=== PATIENT | female | born 1965 | race Caucasian/White ===

== ENCOUNTER 2018-05-12 17:56 | Emergency (ER) | payer MEDICARE, OTHER ==
[~2018-05-12] VITALS: Ht 160 cm; Wt 86.2 kg
== END 2018-05-12 19:41 | disposition home or self-care (01) ==
LOC: ED 17:56
PROC: 2W3CX1Z Immobilization of Right Lower Arm using Splint (ICD-10-PCS; principal; 2018-05-12)
DX: S63.501A Unspecified sprain of right wrist, initial encounter (principal); W10.9XXA Fall (on) (from) unspecified stairs and steps, initial encounter; X50.9XXA Other and unspecified overexertion or strenuous movements or postures, initial encounter
CPT/HCPCS: 29125; 73110; 99283

== ENCOUNTER 2018-11-29 12:23 | Inpatient (IN) | payer MEDICARE, OTHER ==
[~2018-11-29] VITALS: Ht 160 cm; Wt 82.2 kg
--- NOTE | 2018-11-29 14:08 | NUR ---
PT ARRIVED TO FLOOR VIA STRETCHER, FROM [facility] WITH 2L MASK IN PLACE, NG TUBE CLAMPED. PT WITH 7/10 ABDOMINAL PAIN. 0.5 MG DILAUDID ADMINISTERED. NG TUBE CONNECTED TO LIWS. PT IS AAO X3. ORIENTED TO ROOM, D5LR AT 125 STARTED. CALL LIGHT IN REACH. ICE SHIPS PROVIDED PER ORDER. DENIES FURTHER NEEDS.
--- NOTE | 2018-11-29 14:23 | NUR ---
PORT AVAILIBLE NOT, ACCESSED AT THIS TIME.
--- NOTE | 2018-11-29 15:55 | NUR ---
PT WITH 5/10 ABDOMINAL PAIN. REFUSED MEDICAITON. HEAT PACK APPLIED TO ABDOPMEN, ICE PACK TO NECK FOR HEADACHE. DENIES FURTHER NEEDS.
[2018-11-29] MEDS ORDERED: TERBINAFINE HC250 MG PO (15:56)
[2018-11-29] MEDS ORDERED: LISINOPRIL10 MG PO (15:56)
[2018-11-29] MEDS ORDERED: GABAPENTIN300 MG PO (15:56)
[2018-11-29] MEDS ORDERED: MAGIC MOUTHWASH PO (16:00)
[2018-11-29] MEDS ORDERED: LEVOTHYROXINE50 MCG PO (16:01)
[2018-11-29] MEDS ORDERED: OMEPRAZOLE20 MG PO (16:03)
[2018-11-29] MEDS ORDERED: ESCITALOPRAM OX10 MG PO (16:03)
[2018-11-29] MEDS ORDERED: NORCO 5-325 TA1 EACH PO (16:04)
[2018-11-29] MEDS ORDERED: AMITRIPTYLINE H25 MG PO (16:04)
[2018-11-29] MEDS ORDERED: BENADRYL25 MG PO (17:17)
[2018-11-29] MEDS ORDERED: EXCEDRIN MIGRA1 EAC2 PO (17:17)
[2018-11-29] MEDS ORDERED: PROCHLORPERAZIN10 MG PO (17:18)
[2018-11-29] MEDS ORDERED: ONDANSETRON HCL8 MG PO (17:18)
--- NOTE | 2018-11-29 17:19 | NUR ---
MED REC COMPLETE
--- NOTE | 2018-11-29 17:39 | NUR ---
PT REPORTING HEADACHE. TYLENOL SUPPOSITORY ADMINISTERED. 0.5MG IV DILAUDID FOR ABDOMNIAL PAIN, PT WITH NAUSEA, ZOFRAN ADMINISTERED.
--- NOTE | 2018-11-29 18:26 | NUR ---
DIRRECT ADMIT FOR SBO. D5LR AT 125. ZOFRAN FOR NAUSEA, DILAUDID FOR ABDOMINAL PAIN. TYLENOL FOR HEADACHE. PT WITH FREQUENCY TO URINATE. TENDER ABDOMEN, HYPOACTIVE BOWELS. NPO. NG TUBE TO LIWS. MARKEDAT THR 52CM. 16F. 100 ML OUT THIS SHIFT. PT TO FLOOR AT 1400.
--- NOTE | 2018-11-30 02:20 | NUR ---
Coop with assessment, NGT to SANJEEV, JOHN Ding NARE. PATENT, DRAINING DARK BROWN COLORED DRAINAGE. ABD DISTENDED, TIMPANIC BOWEL SOUNDS. IVF INFUSING W/O PROBLEMS. CONTINUES TO BE NPO WITH ICE CHIPS Q8H. DENIES NEED TO GET UP TO BR AT THIS TIME. SCDS IN PLACE. FAMILY IN ROOM
--- NOTE | 2018-11-30 05:43 | NUR ---
PT CONTINUES TO BE NPO X ICE CHIPS, DOES OWN MOUTH CARE. NGT L NARE INTACT, PATENT TOP LIWS, DRAINING 200CC BROWN-GREEN DRAINAGE. UP TO BR VOIDED. DARK ORANGE, STRONG SMELLING URINE, SAMPLE SENT TO LAB. NO C/O ABD PAIN. BACK TO BED, TOLERATED WELL. IVF INFUSING W/O PROBLEMS, SCDS IN PLACE, HOB ELEVATED. PT HAS SLEPT THIS SHIFT. RECEIVED VASOTC IV PER ELEVATGED BP
--- NOTE | 2018-11-30 06:15 | CONS ---
[facility] [address] [place], [place] [address] Signed DATE OF CONSULTATION: 11/29/2018 CHIEF COMPLAINT: Nausea and vomiting. HISTORY OF PRESENT ILLNESS: Godwin is a 53-year-old female who went through a robotic assisted total abdominal hysterectomy back in 2014 for ovarian cancer with Dr. Finn in [place], [place]. In the meantime, she is now on her third round of chemotherapy with Dr. Smith in the [facility]. The family tells me it is recurred in the abdomen and most likely in the liver as well. At one point, she did have an abdominal port catheter for intraabdominal chemotherapy, but that has been removed. She now has a port catheter on the right side of her chest. She has been in the [facility] at least 3 times for the last week or so with what appears to be a recurring if not persistent partial small bowel obstruction. She usually responds quite nicely to IV fluids and NG tube decompression. She has had two CT scans at [facility] and I did review those records. No obvious transition point and no obvious mention of any recurrent ovarian cancer, particularly with respect to the liver. For reasons that are unclear, she was asked to be transferred up to our 25-bed critical access hospital. No mention of any ovarian cancer was undertaken during our conversation. The family had asked me why she had not gone to the [facility] to be with a medical oncologist. Apparently, the medical oncologist is difficult to get a hold of. In the meantime, she seems to be hemodynamically stable and she does have moderately dark bilious fluid coming out of her NG tube. Her and two daughters are with her currently along with grandchildren. PAST MEDICAL HISTORY: Some type of rash on her thighs, her arms, and so forth. She has stage IV ovarian cancer and has been undergoing chemotherapy with Dr. Smith associated with [facility]. She has hypothyroidism, anxiety, depression, migraine headaches, allergic rhinitis, lower extremity edema, possible urinary tract infection, newly diagnosed hypertension, chronic pain, and diverticulosis. PAST SURGICAL HISTORY: Laparoscopic cholecystectomy, open appendectomy through a lower midline incision, robotic-assisted total abdominal hysterectomy in [address] Finn, removal of her abdominal port catheter with persistent right chest wall port catheter. She has had a bilateral tubal ligation, colonoscopy in 2018, and tonsillectomy. SOCIAL HISTORY: She has quit smoking. She does not drink. 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 She has now been on disability for the last 2 years. She is to her , Berny, at #[phone]. She has three children, one is Blanca Ahn Electronically Signed By: ARGENTINA CASTELLON MD 11/30/18 0615 PATIENT NAME: GODWIN LUGO CONSULTATION DATE OF : 61 REPORT #: [id number] PHYSICIAN: ARGENTINA CASTELLON MD PCP: BRITTA PENA PAC REPORT IS CONFIDENTIAL AND NOT TO BE RELEASED WITHOUT AUTHORIZATION [address] [address] Signed at #[phone], also Megha Moore at #[phone]. Her 's telephone number is #[phone]. Her primary care provider apparently is Ernie Moscoso. She prefers [facility] in [place], [place]. They reside in [place], [place]. FAMILY HISTORY: Cousin and uncle apparently had colon cancer. REVIEW OF SYSTEMS: She had 10 systems reviewed and she gave me all the details regarding her ovarian cancer. ALLERGIES: No known drug allergies, but she apparently has hay fever and other possible environmental allergies. MEDICATIONS: Prednisone, levothyroxine, amitriptyline, omeprazole, [place], amoxicillin, escitalopram, ofloxacin ear drops, oseltamivir, terbinafine, lisinopril, and gabapentin. PHYSICAL EXAMINATION: VITAL SIGNS: Her blood pressure is 171/94, her heart rate is 82, respiratory rate 16, and temperature is 97.1. She is 96% on room air. She is 5 feet 3 inches and weighs 181 pounds. GENERAL: Godwin is a 53-year-old female who is lying supine in her hospital bed with her and both daughters in the room and looks like some grand children. She is alert, awake, and interactive. She still has good muscle mass. She actually is a good historian. She does not appear to be in any acute distress. I do see a moderately dark green bile coming out of her NG tube. LUNGS: Clear to auscultation. HEART: Regular rate and rhythm. ABDOMEN: Clearly distended. It is moderately firm and feels full. No dominant mass noted. No incisional hernias. LABORATORY DATA: Her white blood count is 5.7, hemoglobin is 14.8, and neutrophils 47. BUN 11 and creatinine 1.0. Her amylase is 40 and alkaline phosphatase is 59. Liver function tests are negative. Her albumin is 4.4. RADIOGRAPHIC STUDIES: Two CT scans from [facility] were reviewed that is in reports. She apparently had a small bowel obstruction that seems to have resolved. No mention of any lesions in the liver or elsewhere in the abdomen. ASSESSMENT AND PLAN: Godwin is a 53-year-old female who presents with what appears to be stage IV ovarian cancer Electronically Signed By: ARGENTINA CASTELLON MD 11/30/18 0615 PATIENT NAME: GODWIN LUGO CONSULTATION DATE OF : 61 REPORT #: [id number] PHYSICIAN: ARGENTINA CASTELLON MD PCP: BRITTA PENA PAC REPORT IS CONFIDENTIAL AND NOT TO BE RELEASED WITHOUT AUTHORIZATION [facility] [address] [place], [place] [address] Signed with at least a partial small bowel obstruction. At this point, she is admitted and we will follow along with some conservative therapy with an NG tube and IV fluids. I let Godwin and her family know on-call our medical oncologist tomorrow in the morning. They have expressed understanding and agreed with above plan. Argentina Castellon MD ALB/MODL /[id number] cc: MD Fausto Willett MD Daniel C Hambleton, MD Russel J Nichols, MD Copies: ARGENTINA CASTELLON MD, BASIR MD HAMBLETON, DANIEL C MD NICHOLS, RUSSEL J MD ~ Electronically Signed By: ARGENTINA CASTELLON MD 11/30/18 0615 PATIENT NAME: GODWIN LUGO CONSULTATION DATE OF : 61 REPORT #: [id number] PHYSICIAN: ARGENTINA CASTELLON MD PCP: BRITTA PENA PAC REPORT IS CONFIDENTIAL AND NOT TO BE RELEASED WITHOUT AUTHORIZATION
--- NOTE | 2018-11-30 06:55 | NUR ---
c/o 02/04 abd pain, nedicated with 0.5mg IV Dilaudid. ngt patent, draining brown green drainage
--- NOTE | 2018-11-30 07:10 | NUR ---
RECEIVED REPORT FROM CRUSHER SCREEN REPAIRER RN. PT IN BED AWAKE. IS AAO X3. NG TO LILUCIA. D5LR AT 125 INFUSING. DENIES NAUSEA. PRN PAIN MEDICATION FOR PAIN ADMINISTERED. CALL LIGHT IN REACH.SCD'S IN PLACE.
--- NOTE | 2018-11-30 09:55 | NUR ---
PATIENT RESTING IN BED. FAMILY IN ROOM. VITAL SIGNS AND I&O DONE. PATIENT DID NOT VOID DURING THIS PERIOD. RN NOTIFIED. CALL LIGHT WITHIN REACH. NO OTHER NEEDS AT THIS TIME
--- NOTE | 2018-11-30 10:00 | NUR ---
4 OZ ICE CHIPS PROVIDED FOR COMFORT.
--- NOTE | 2018-11-30 11:24 | NUR ---
PATIENT RESTING IN BED. DAUGHTER IN ROOM. SETS UP BATHROOM FOR SHOWER. PATIENT GOES TO BATHROOM TO TAKE A SHOWER. LINENS CHANGED. NO OTHER NEEDS AT THIS TIME
--- NOTE | 2018-11-30 12:45 | NUR ---
PT SITTING UP IN BED, NG TUBE AND COPING WELL COULD BE EXPECTED. PT'S DAUGHTER IN VISITING. PT REQUESTED PRAYER, MERON FOLLOW NEEDED
--- NOTE | 2018-11-30 12:51 | NUR ---
PATIENT RESTING IN BED. DAUGHTER IN ROOM. VITAL SIGNS AND I&O DONE. CALL LIGHT WITHIN REACH. NO OTHER NEEDS AT THIS TIME
--- NOTE | 2018-11-30 13:00 | NUR ---
DR CASTELLON IN TO ROUND ON PT. PLAN OF CARE DISCUSSED. QUESTIONS AND CONCERNS ADRESSED.
--- NOTE | 2018-11-30 14:03 | NUR ---
IV FLUID BOLUS COMPLETED. IV DC'D INTACT AT THIS TIME, NG DC, PT TOLERATED WELL. DAUGHTER IN ROOM AND HELPING PT DRESS. WILL CALL WHEN READY FOR DC.
--- NOTE | 2018-11-30 14:22 | NUR ---
PATIENT SITTING UP IN BED. DAUGHTER IN ROOM. FINAL VITAL SIGNS WERE OBTAINED PRIOR TO DISCHARGE FROM THE UNIT
--- NOTE | 2018-12-01 08:16 | DS ---
[facility] [address] [place], [place] [address] Signed ADMISSION DATE: 11/29/2018 DISCHARGE DATE: 11/30/2018 FINAL DIAGNOSES: 1. Small bowel obstruction. 2. Metastatic ovarian cancer. PROCEDURES: None. HISTORY OF PRESENT ILLNESS: Arianne is a 53-year-old female who underwent her robotic-assisted hysterectomy with Dr. Shreya Luna in 2014 in [place], [place]. She had a Nstu-X-Lbfhxmxh placed in the abdomen, one in the right chest wall. She had both systemic chemotherapy and intraabdominal chemotherapy. As is common with ovarian cancer, responded quite nicely early on. Unfortunately, she had come back and she is now into her third round of chemo. The abdominal Pljw-W-Cfydfbmk has long since been removed. She lives [place] out [place] the [place] in [place], [place]. She had been having trouble last week or so with recurring partial small bowel obstruction. She had been to [facility] in [place], [place]. She had two CT scans done and there were no obvious masses in the liver or otherwise in the lymph node seemed to be fine and there was no obvious transition point. I had been called at here in [place], [place] to accept her in transfer. Unfortunately, there was no discussion of ovarian cancer over the telephone. HOSPITAL COURSE: Arianne was admitted as above and she has had clear bilious fluid at her NG tube. Her urine output has been a little on the low side, so we are going to give her some extra IV fluids. She has had no flatus. Her abdomen is gqvs-th-gsaihcmdfx distended and has a kind of doughy feeling, but no fluid wave. There is no specific mass palpable. No incisional hernias. I had a long discussion with Arianne and her family including her two daughters and her . Their medical oncologist is Dr. Fausto Smith associated with [facility] in [facility] about an hour from our hospital. It was already late in the evening, so this morning I spoke with Dr. Smith personally and of course, he very kindly asked that she be transferred over to [facility] for ongoing evaluation and treatment. From our discussion, it sounds like she is probably not a candidate for any additional surgeries. Arianne and her daughter feel comfortable, she can travel by private vehicle. We are going to go ahead and discharge Emergency Room over at [facility] per Dr. Smith's advice. Consequently, we were not going to provide any new medications or prescriptions. We have been happy to take care Arianne and we wish her a good luck. She and her daughter expressed understanding Electronically Signed By: ARGENTINA CASTELLON MD 12/01/18 0816 PATIENT NAME: GODWIN LUGO DISCHARGE SUMMARY DATE OF : 61 REPORT #: [id number] PHYSICIAN: ARGENTINA CASTELLON MD PCP: NO PRIMARY CARE PHYSICIAN REPORT IS CONFIDENTIAL AND NOT TO BE RELEASED WITHOUT AUTHORIZATION [facility] [address] [place] [id number] Signed and agreed with above plan. Argentina Castellon MD ALB/MODL /[id number] cc: MD Irene Harmon, MD Argentina Castellon, MD Fausto Smith MD Copies: SHREYA LUNA MD,IRENE CASTELLON,FAUSTO SOSA MD, MD ~ Electronically Signed By: ARGENTINA CASTELLON MD 12/01/18 0816 PATIENT NAME: GODWIN LUGO DISCHARGE SUMMARY DATE OF : 61 REPORT #: [id number] PHYSICIAN: ARGENTINA CASTELLON MD PCP: NO PRIMARY CARE PHYSICIAN REPORT IS CONFIDENTIAL AND NOT TO BE RELEASED WITHOUT AUTHORIZATION
== END 2018-11-30 14:25 | disposition home or self-care (01) | DRG 389 ==
LOC: MS 12:23
PROVIDERS: ADMIT Colon & Rectal Surgery
DX: K56.600 Partial intestinal obstruction, unspecified as to cause (principal); C56.9 Malignant neoplasm of unspecified ovary; C79.9 Secondary malignant neoplasm of unspecified site; B49 Unspecified mycosis; E03.9 Hypothyroidism, unspecified; F41.9 Anxiety disorder, unspecified; F32.9 Major depressive disorder, single episode, unspecified; G43.909 Migraine, unspecified, not intractable, without status migrainosus; J30.9 Allergic rhinitis, unspecified; R60.0 Localized edema; I10 Essential (primary) hypertension; G89.29 Other chronic pain; K57.90 Diverticulosis of intestine, part unspecified, without perforation or abscess without bleeding; G62.9 Polyneuropathy, unspecified; T45.1X5D Adverse effect of antineoplastic and immunosuppressive drugs, subsequent encounter; Z90.710 Acquired absence of both cervix and uterus; Z87.891 Personal history of nicotine dependence; Z79.891 Long term (current) use of opiate analgesic; Z79.52 Long term (current) use of systemic steroids; Z79.899 Other long term (current) drug therapy
CPT/HCPCS: 36415; 80048; 81001; 83605; 83735; 84100; 84134; 85025; 86304; C9113; J1170; J1885; J2405; J7120